=== PATIENT | female | born 1990 | race Caucasian/White ===

== ENCOUNTER 2018-03-19 01:15 | Emergency (ER) | payer OTHER ==
[~2018-03-19] VITALS: Ht 160 cm; Wt 73.0 kg
[2018-03-19 01:20] VITALS: BP 116/71
[2018-03-19 02:56] LABS: BASOPHILS % (AUTO) 0.5 % (0.0-2.0); EOSINOPHILS # (AUTO) 0.1 K/uL (0-0.4); HEMATOCRIT 37.6 % (36-48); HEMOGLOBIN 12.8 g/dL (12.0-16.0); LYMPHOCYTES # (AUTO) 2.2 K/uL (2.5-16.5); LYMPHOCYTES % (AUTO) 33.2 % (20.5-51.1); MEAN CORPUSCULAR HEMOGLOBIN 31 pg (27-31); MEAN CORPUSCULAR HGB CONC 34 g/dL (33-37); MEAN CORPUSCULAR VOLUME 90.4 fL (80-94); MONOCYTES # (AUTO) 0.5 K/uL (0.8-1.0); NEUTROPHILS # (AUTO) 3.8 K/uL (1.8-7.7); NEUTROPHILS % (AUTO) 57.3 % (42.2-75.2); PLATELET COUNT (AUTO) 223 K/uL (140-450); RED BLOOD CELL COUNT(AUTO) 4.17 MIL/uL (4.20-5.40); RED CELL DISTRIBUTION WIDTH 12.9 % (11.6-13.7); WHITE BLOOD COUNT (AUTO) 6.6 K/uL (4.8-10.8)
[2018-03-19] MEDS ORDERED: ACETAMINOPHEN 325 MG TAB PO ONE (05:25)
[2018-03-19 05:40] VITALS: BP 104/68
== END 2018-03-19 05:40 | disposition home or self-care (01) ==
LOC: MED 01:15
DX: O20.0 Threatened abortion (principal); Z3A.14 14 weeks gestation of pregnancy; O23.42 Unspecified infection of urinary tract in pregnancy, second trimester
CPT/HCPCS: 36415; 76805; 81002; 81025; 84702; 85025; 86900; 86901; 99284; Q0092

== ENCOUNTER 2021-06-08 23:25 | Emergency (ER) | payer OTHER ==
[~2021-06-08] VITALS: Ht 157.5 cm; Wt 68.9 kg
[2021-06-08 23:25] VITALS: BP 124/70
--- NOTE | 2021-06-08 23:25 | NUR ---
TO BED AMBULATORY
--- NOTE | 2021-06-09 00:16 | NUR ---
REPORTS LOWER ABDOMINAL PAIN THAT HAS BEEN PRESENT OVER A YEAR. STATES WAS SEEN AT [facility] AND WAS GIVEN NO DIAGNOSES. UNABLE TP SEE OBGYN AT THIS TIME.
--- NOTE | 2021-06-09 01:00 | NUR ---
ULTRASOUND ADVISED PATIENT NEEDS FULL BLADDER. WAS GIVEN WATER TO DRINK FOR SCAN
[2021-06-09] MEDS ORDERED: IBUP-1801 PO (04:21)
[2021-06-09] MEDS ORDERED: IBUPROFEN 800 MG TAB PO ONE (04:25)
--- NOTE | 2021-06-09 04:51 | NUR ---
PATIENT CLEARED FOR DISHCARGE AT THIS TIME. ADVISED TO FOLLOW UP WITH PCP AND RETURN IF CONDITION WORSENS. NO OTHER COMPLAINTS OR CONCERNS FOLLOWING DISHCARGE TEACHING.
[2021-06-09 04:52] VITALS: BP 119/58
== END 2021-06-09 04:51 | disposition home or self-care (01) ==
LOC: MED 23:25
DX: R10.2 Pelvic and perineal pain (principal); Z79.899 Other long term (current) drug therapy; Z98.890 Other specified postprocedural states
CPT/HCPCS: 76856; 81002; 81025; 99284; Q0092